=== PATIENT | male | born 1950 | race Caucasian/White ===

== ENCOUNTER 2018-07-17 05:26 | Day surgery (SDC) | payer OTHER ==
[~2018-07-17] VITALS: Ht 172.7 cm; Wt 74.8 kg
--- NOTE | ~2018-07-17 | O ---
[facility] [place], [place] [address] OPERATIVE REPORT Name: ROM BLAIR Room #: 150-4 [facility] Vivek#: [id number] Admission: 07/17/18 ������������������ Attend Phys: Olu Johnston Discharge: ������������������ Date of : 54 Report #: [id number] THIS REPORT FOR: //name// CC: Olu Leo DATE OF SERVICE: 07/17/2018 PREOPERATIVE DIAGNOSIS: Right shoulder adhesions following rotator cuff repair. POSTOPERATIVE DIAGNOSIS: Right shoulder adhesions following rotator cuff repair. PROCEDURE PERFORMED: Right shoulder arthroscopy, extensive debridement with capsular release, manipulation under anesthesia. SURGEON: Olu Flores M.D. [employer] CAR: Amanda Watters PA-C. ANESTHESIA: General with preoperative ultrasound-guided interscalene block. FLUIDS: 800 mL of crystalloid. ESTIMATED BLOOD LOSS: Less than 5 mL. DESCRIPTION OF PROCEDURE: After proper identification of the patient and operative site in preoperative holding area, the operative site was signed by myself. The patient elected to receive a block. We reviewed the risks, benefits, alternatives and potential complications of his diagnosis and treatment. The patient wished to proceed with the above. He was brought back to the operative suite after induction of satisfactory general anesthesia per LMA. The shoulder was examined. The scapula stabilized. It was mobilized in all planes and the patient's full forward elevation was able to be achieved. His external rotation with the arm abducted was symmetric to the opposite side at 80-85 degrees. He still had some mild stiffness in neutral position and external rotation and he had slightly in his internal rotation and abduction was actually greater than the opposite side. He still had some increased scapulothoracic motion especially appreciated with external rotation, so as we discussed, we proceeded with the arthroscopic portion of the procedure. He was carefully positioned with the beanbag. Axillary roll was utilized. Right shoulder was sterilely prepped and draped in usual manner and placed in 10 pounds balanced arthroscopic suspension. Posterior portal was established. Arthroscope was inserted into the glenohumeral joint space where some mild intra-articular synovitis was noted. Very thickened rotator interval tissue was noted and this was carefully released as well as his anterior capsule under [facility] [place] [place] [address] [place] [address] OPERATIVE REPORT Name: JOHNNIEJANELROM C Room #: 150-4 [facility]..#: [id number] Admission: 07/17/18 ������������������ Attend Phys: Olu Johnston Discharge: ������������������ Date of : 54 Report #: [id number] direct visualization. Rotator cuff appeared healed from the articular side with no evidence of retear noted. Sutures could not be visualized from this. Subscapularis was intact. Long head of the biceps tendon was stable within the groove. Thickened tissue from the rotator interval was debrided with motorized shaver. Arthroscope was then introduced in the subacromial space where the patient had pronounced subacromial adhesions, more in the subdeltoid space than the subacromial space. These were carefully released in its entirety. The rotator cuff tear had healed completely and was stable to probing. Sutures were under a tissue layer and just barely evident, so no bursal-sided tears were noted. After the subdeltoid space had been completely released, the arm was taken out of suspension and placed throughout a full range of motion and the external rotation improved and the remainder of his motion was otherwise symmetric. Subacromial space was thoroughly irrigated with normal saline. Portals closed with simple nylon stitch. Sterile dressing was applied. The patient will start physical therapy tomorrow to begin on his range of motion. His sling may be utilized while his arm is numb from the block and then is to be discontinued by tomorrow morning. ��������������������������������������������� ���������������������������������������� By: ��������������������������������������������� 1211 1306 Olu Flores MD /nt
[~2018-07-17 05:26] MED LIST: ALFUZOSIN HCL10 MG PO; ASPIR 8181 MG PO; CLARITIN10 M2 PO; LANSOPRAZOLE30 MG PO; LIPITOR10 MG PO; LOSARTAN-HCTZ1 EACH PO; NORVASC5 MG PO; PROBIOTIC1 EAC1 PO; RESTORIL15 MG PO; TRAMADOL 50 MG50 MG PO; VITAMIN D1000 UNI1 PO; ZETIA10 MG PO
[2018-07-17 10:13] VITALS: BP 124/79
[2018-07-17 10:38] LABS: CALCIUM 9.2 mg/dL (8.5-10.1); POTASSIUM 3.9 mmol/L (3.5-5.1)
--- NOTE | 2018-07-18 07:44 | EKG ---
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: ALLISON : 1950 Requested By: Olu Flores Order Number: [id number] MD: Kobi Camp Measurements Intervals [place] Rate: 55 P: 39 ID: [id number] QRS: -29 QRSD: 85 T: 8 QT: 421 QTc: 403 Interpretive Statements Sinus bradycardia Otherwise normal tracing Compared to ECG 11/12/2013 10:10:29 No significant change was found Electronically Signed On 07-18-2018 7:44:10 CDT by Kobi Camp [email or web address] ��������������������������������������������� <ELECTRONICALLY SIGNED> ���������������������������������������� By: Kobi Camp MD, [facility] ��������������������������������������������� 07/18/18 0744 1005 1005 Kobi Camp MD, [facility] /EPI
== END 2018-07-17 13:25 | disposition home or self-care (01) ==
LOC: TBA 05:26 → OR 05:26
PROVIDERS: Orthopaedic Surgery Sports Medicine
DX: M75.01 Adhesive capsulitis of right shoulder (principal); I10 Essential (primary) hypertension; E78.5 Hyperlipidemia, unspecified; K21.9 Gastro-esophageal reflux disease without esophagitis; Z96.653 Presence of artificial knee joint, bilateral; Z87.442 Personal history of urinary calculi; Z79.899 Other long term (current) drug therapy; Z88.8 Allergy status to other drugs, medicaments and biological substances; Z98.890 Other specified postprocedural states; Z79.82 Long term (current) use of aspirin
CPT/HCPCS: 50010; 50101; 50172; 50386; 50417; 51038; 51445; 53610; 54170; 56527; 57103; 62110; 62900; 65060; 70005